=== PATIENT | female | born 1980 | race Caucasian/White ===

== ENCOUNTER 2019-04-20 05:51 | Inpatient (IN) | payer OTHER ==
[2019-04-19 16:25] VITALS: BMI 40.2
[2019-04-19 17:08] LABS: ALT (SGPT) 15 U/L (8-55); AST (SGOT) 12 U/L (5-34); Albumin 4.1 g/dL (3.5-5.0); Alkaline Phosphatase 83 U/L (40-150); Bilirubin, Direct 0.1 mg/dL (0.1-0.3); Bilirubin, Total Less than 0.2 mg/dL (0.2-1.2); Protein, Total 7.9 g/dL (6.0-8.3)
[2019-04-19 17:09] LABS: BHCG - Serum Negative (NEGATIVE); Pregs Control Background? CLEAR/WHITE (CLR/WHITE); Pregs Control Bar Appear? YES (CONTROL BAR)
[2019-04-20] MEDS ORDERED: Famotidine/PF 20 mg/2ml Vial ONE ×2 (06:14→06:31)
[2019-04-20] MEDS ORDERED: Gabapentin 300 MG CAP ONE (06:14)
[2019-04-20] MEDS ORDERED: CeleCOXIB 100 MG CAP ONE (06:15)
[2019-04-20] MEDS ORDERED: Meperidine HCl/PF 25 MG/ML VIAL ONE (06:31)
[2019-04-20] MEDS ORDERED: Fentanyl 100 MCG/2 ML VIAL ONE ×2 (06:31→11:51)
[2019-04-20] MEDS ORDERED: Bupivacaine HCl 0.5%/Epinephrine 1:200,000/PF 30 ml Vial ONE (07:06)
[2019-04-20] MEDS ORDERED: SUGAMMADEX SODIUM 500 MG/5 ML VIAL ONE (09:54)
[2019-04-20] MEDS ORDERED: Promethazine HCl 25 MG/ML VIAL IM PRN ×2 (10:30→10:41)
[2019-04-20] MEDS ORDERED: Ondansetron HCl/PF 4 MG/2 ML Vial IVP PRN (10:30)
[2019-04-20] MEDS ORDERED: Promethazine HCl 25 MG/ML VIAL SLOW IVP PRN (10:30)
[2019-04-20] MEDS ORDERED: diphenhydrAMINE 25 MG CAP PO PRN (10:41)
[2019-04-20] MEDS ORDERED: Metoprolol Tartrate 5 MG/5 ML VIAL IVP PRN (10:41)
[2019-04-20] MEDS ORDERED: HYDROcodone/Acetaminophen 5/325 mg Tablet PO PRN (10:41)
[2019-04-20] MEDS ORDERED: Bisacodyl 10 MG SUPP PR PRN (10:41)
[2019-04-20] MEDS ORDERED: Ondansetron PF 4 MG/2 ML Vial IVP PRN (10:41)
[2019-04-20] MEDS ORDERED: Zolpidem Tartrate 5 MG TAB PO PRN (10:41)
[2019-04-20] MEDS ORDERED: Morphine 4 MG/ML VIAL SLOW IVP PRN (10:41)
[2019-04-20] MEDS ORDERED: Dextrose 50% Abboject 50 ML SYRINGE SLOW IVP PRN (11:10)
[2019-04-20] MEDS ORDERED: Dextrose 5% in Water 1,000 ML IV PRN (11:10)
[2019-04-20] MEDS ORDERED: Insulin Regular 300 UNITS/3 ML VIAL SC PRN (11:10)
--- NOTE | 2019-04-20 12:43 | OP ---
DATE OF PROCEDURE: 04/20/2019 PREOPERATIVE DIAGNOSES: 1. Pelvic pain. 2. Fibroids. 3. Menorrhagia. 4. Anemia. POSTOPERATIVE DIAGNOSES: 1. Pelvic pain. 2. Fibroids. 3. Menorrhagia. 4. Anemia. 5. Endometriosis. 6. Adhesive disease. PROCEDURES PERFORMED: Robotic assisted total laparoscopic hysterectomy, bilateral salpingectomy, and lysis of adhesions x50 minutes. MIXING PAN TENDER SURGEON: Rebeka To PA-C ANESTHESIA: General endotracheal. PATHOLOGY: Uterus, cervix, and bilateral fallopian tubes. ESTIMATED BLOOD LOSS: 100 mL. IVF: 1700 mL crystalloid. URINE OUTPUT: 550 mL clear urine. COMPLICATIONS: None. DRAINS: Roblero catheter. FINDINGS: The uterus sounded to 10 cm. The cervix and vagina were normal appearing. On intraabdominal survey, there were dense adhesions of the colon to the anterior fundal and posterior portion of the uterus as well as adhesions of the colon and epiploica to bilateral adnexa. The bladder was densely adherent to a portion of the lower uterine segment anteriorly and there were omental adhesions to the anterior abdominal wall. Once the adhesions were removed, there were normal-appearing fallopian tubes and ovaries. Subserosal fibroids were noted on the anterior and posterior surface of the uterus. There was no bowel injury upon running the colon following the surgery and there was no bladder injury upon back filling of the bladder. The ureters were visible and retroperitoneally bilaterally and were vermiculating in lateral to the surgical site. There was a small black endometriotic implant in the posterior cul-de-sac that was cauterized. Excellent hemostasis on low pressure check. OPERATIVE TECHNIQUE: The patient was taken to the operating room, where general anesthesia was obtained without difficulty. The patient was prepped and draped in a sterile fashion in the dorsal lithotomy position. A Roblero catheter was placed in the bladder. A speculum was placed in the vagina. The anterior lip of the cervix was grasped with single-tooth tenaculum. The cervix was then dilated with Chuy dilators and the NANCY manipulator was assembled with an 8 cm tip and a 3.5 cm colpotomizer ring. The uterine manipulator was inserted and the colpotomizer ring was advanced fit snugly around the cervix and all instruments removed out of vagina. Legs were placed in low lithotomy. Attention was turned to the abdomen. A 0.5% Marcaine with epi was infiltrated into the umbilicus and a 12 mm skin incision was made. The Veress needle was passed to the abdomen, noting an opening pressure of 4 mmHg. Pneumoperitoneum was obtained without difficulty. The Veress needle was removed. The 12 mm trocar was advanced into the abdomen and confirmed placement with the robotic camera. Steep Trendelenburg was obtained. The right 8 mm lower quadrant robotic trocar was placed under direct visualization after infiltrating with anesthetic. The 11 mm assistant professor of chemistry port was placed in the right upper quadrant under direct visualization after infiltrating with anesthetic. The left side was examined and the adhesions were noted at that time. The camera was maneuvered to visualize the left lower quadrant and the 8 mm lower quadrant left-sided robotic trocar was placed under direct visualization after infiltrating with anesthetic. The robot was then docked. The right robotic arm contained monopolar scissors and left robotic arm contained a fenestrated bipolar. The surgeon console then took control. The adhesions were then assessed noting majority being colonic adhesions to the uterus and adnexa. The omental adhesions to the anterior abdominal wall were taken down initially as these were closest to our camera and peeling the view of the fenestrated. This was done with the scissors on cautery. The additional omental adhesions were layered out with the clear window and then incising in this clear portion to ensure no inadvertent injury. The adhesions of the bladder to the lower anterior uterus were then layered out carefully with the scissors as well as pushing and spreading technique to attempt to get the tissue to peel away into and define the spaces that were free of any vital structures. The bladder was then backfilled and the limitations of the bladder mucosa were noted. The adhesion to the lower segment of the bladder was then incised with the scissors and carefully peeled away and staying close to the uterus and hemostasis was noted. The colonic adhesions to the uterus were then addressed. The filmy fibers were incised well away from the bowel to ensure no thermal or sharp injury to the bowel. These colonic adhesions were taken down with the use of a blunt dissection as well as appealing technique as well as cold cutting. There was an area of dense adhesion to the fundal portion and the colon was taken down as much with as would peel away around this area and then carefully peeled away these adhesions. There was a small amount of the uterine serosa that was peeled away with these adhesions, with this was to prevent any damage to the bowel. This technique was carried around the entire uterus, carefully ensuring no inadvertent injury to the bowel. The adnexal adhesions of the colon were taken down largely with layering out by pushing and spreading and then incised in a clear portion as well as peeling away. The assistant professor of chemistry was useful to provide countertraction while these adhesions were being peeled away and a total of approximately 50 minute was spent on the lysis of adhesion portion. Once the anatomy was normalized, the right fallopian tube was grasped and elevated. The mesosalpinx was cauterized with the fenestrated incised with the scissors until the medial portion was met and then this was clamped across cauterized with the fenestrated and transected with the scissors and removed out of the abdomen. The right round ligament was cauterized in the midportion with the fenestrated and incised with the scissors and then the mesovarium was cauterized and transected as well as the utero-ovarian noting hemostasis. The ureter was then noted running in the pelvic sidewall on the right. The posterior leaf of the broad ligament was dropped down as well as the anterior leaf of the broad ligament. The uterine vessels were skeletonized with the scissors and the vesicouterine peritoneum was incised after undermining with the fenestrated and the bladder flap was further developed using a scoring technique on the pubocervical fascia and blunt dissection down below the level of the colpotomizer ring. Attention was then turned to the right side. There remained some filmy adhesions to the fallopian tube from the colon and these were taken down with the scissors. The mesosalpinx was then clamped and cauterized with the fenestrated and transected with scissors and the medial portion was clamped across, cauterized, and transected removed out of the abdomen. The left round ligament was clamped in the midportion and cauterized with the fenestrated and transected with the scissors. The anterior leaf of the broad ligament was undermined and dropped down to the level of the incision from the contralateral side and further dissection in the retroperitoneum with pushing and spreading was performed. The mesovarium was then cauterized and incised as well as the utero-ovarian ligament on the left ensuring hemostasis. The uterus was anteverted and the posterior leaf of the broad ligament on the left was dropped down to the level of the uterosacral. This side had more dense adhesions and visualization of the ureter was difficult. Therefore, the posterior leaf was pulled traction on and blunt dissection through the retroperitoneum was able to identify the ureter running in the medial leaf of the broad ligament and noting that to be very lateral. The vessels were then skeletonized on the left side. The bladder flap was completely developed at that point, and the vessels were cauterized with the fenestrated multiple times bilaterally and the right side was then incised and the anterior colpotomy was performed and carried around to the left side, where those vessels were again cauterized and then dropped down and incised to allow the pedicle to fall away. The colpotomy was then completed posteriorly. The uterus was then removed into the vagina. The cuff was irrigated and noted to be hemostatic. The scissors were traded out for the needle sweeper driver and the vaginal cuff was closed with a 2-0 barbed STRATAFIX suture in a running fashion and then run back for the additional layer. The needle was cut and removed out of the abdomen and copious irrigation was performed of the pelvis. The ureters were noted at that time, again intact and vermiculating in the pelvic sidewalls. The bowel was examined, where the adhesions were taken down from and noted to be hemostatic without any evidence of injury or serosal damage. Copious irrigation was performed of this area as well. The bladder was backfilled, and no extravasation of saline into the pelvis was noted and low pressure check was performed noting excellent hemostasis. Tisseel was then placed over the surgical site as well as over the area of the lysis of adhesions on the colon and all instruments removed out of the abdomen. The robot was then docked. The fascia of the camera port was closed with 0 Vicryl in a [id number] fashion. The skin was closed with a 4-0 Monocryl in subcuticular fashion and Dermabond was applied. The vaginal cuff was checked and noted to be hemostatic. All instruments were removed out of the vagina. The patient tolerated the procedure well. Sponge, lap, and needle counts were correct x2. The patient was taken to recovery room in stable condition. The patient received Ancef 2 g prior to the procedure. Job ID: [id number]
[2019-04-20] MEDS ORDERED: Simethicone Chewable 80 MG TAB PO PRN (13:00)
[2019-04-20] MEDS: Ketorolac Tromethamine 30 MG/ML VIAL IVP SCH ×2 (13:20→18:54)
[2019-04-20 13:33] LABS: Glucose Accucheck Confirmation 184 mg/dl (70-105)
[2019-04-20] MEDS ORDERED: Ibuprofen 800 MG TAB PO SCH (14:00)
[2019-04-20] MEDS: Sodium Chloride 0.9% 1,000 ML IV SCH (14:50)
[2019-04-20] MEDS: Ibuprofen 800 MG TAB PO SCH ×2 (16:44→22:06)
[2019-04-20] MEDS: HYDROcodone/Acetaminophen 5/325 mg Tablet PO PRN (22:47)
[2019-04-21] MEDS: Ketorolac Tromethamine 30 MG/ML VIAL IVP SCH ×3 (00:51→07:32)
[2019-04-21] MEDS: Sodium Chloride 0.9% 1,000 ML IV SCH ×2 (00:54→06:17)
[2019-04-21 04:49] LABS: Hemoglobin 10.2 g/dL (12.0-16.0); Mean Corpuscular HGB CONC 31.9 g/dL (32.0-36.0); Mean Corpuscular Hemoglobin 24.9 pg (27.0-31.0); Mean Platelet Volume 6.4 fL (7.4-10.4); Platelet Count 423 thou/uL (130-400); RBC Distribution Width 18.4 % (11.5-14.5); Red Blood Cell (RBC) Count 4.08 mill/uL (4.20-5.40); White Blood Cell (WBC) Count 14.1 thou/uL (4.8-10.8)
[2019-04-21 05:08] LABS: Anion Gap 10 mmol/L (10-20); BUN (Urea Nitrogen) 12 mg/dL (7.0-18.7); Calc. Creatinine Clearance 172 mL/min (70-130); Calcium 8.2 mg/dL (7.8-10.44); Carbon Dioxide 26 mmol/L (22-29); Chloride 104 mmol/L (98-107); Estimated GFR-MDRD Greater than 90; Glucose 145 mg/dL (70-105); Potassium 3.7 mmol/L (3.5-5.1); Sodium 136 mmol/L (136-145)
[2019-04-21] MEDS: Ibuprofen 800 MG TAB PO SCH (05:24)
[2019-04-21] MEDS: HYDROcodone/Acetaminophen 5/325 mg Tablet PO PRN (05:24)
[2019-04-21 05:29] VITALS: TEMP 98
[2019-04-21] MEDS ORDERED: metFORMIN 500 MG TAB PO SCH (08:00)
[2019-04-21 08:30] VITALS: BP 108/69
[2019-04-21] MEDS ORDERED: Lisinopril/Hydrochlorothiazide 20 mg/12.5 mg Tablet PO SCH (09:00)
[2019-04-21] MEDS ORDERED: GLYXAMBI PO SCH (09:00)
--- NOTE | 2019-04-21 10:23 | PDOC.EVN ---
Event Note - Event Note Event Note: POD1 S: No complaints, pramod po, pain controlled, min vag spotting, voiding and ambulating. O: VSSAF NAD unlabored resp Abd s/appttp/nd/inc c/d/i no edema Hgb 10.2 BS 135 this am BMP wnl A) POD1 s/p RATLH Bilat salpingecotmy MIKE P) Met all milestones, DC home with restrictions, FU 2 wk, cont home meds, DC with norco and ibuprofen. Intraop findings discussed, health information clerk present.
== END 2019-04-21 11:27 | disposition home or self-care (01) | DRG 743 ==
LOC: SURG A 05:51 → 3SE 11:37
PROVIDERS: ADMIT Student in an Organized Health Care Education/Training Program; ATTEND Student in an Organized Health Care Education/Training Program
PROC: 0UT94ZZ Resection of Uterus, Percutaneous Endoscopic Approach (ICD-10-PCS; principal; 2019-04-20)
PROC: 0UT74ZZ Resection of Bilateral Fallopian Tubes, Percutaneous Endoscopic Approach (ICD-10-PCS; 2019-04-20)
PROC: 0DNE4ZZ Release Large Intestine, Percutaneous Endoscopic Approach (ICD-10-PCS; 2019-04-20)
PROC: 8E0W4CZ Robotic Assisted Procedure of Trunk Region, Percutaneous Endoscopic Approach (ICD-10-PCS; 2019-04-20)
DX: D25.2 Subserosal leiomyoma of uterus (principal); N80.9 Endometriosis, unspecified; D64.9 Anemia, unspecified; K66.0 Peritoneal adhesions (postprocedural) (postinfection)
CPT/HCPCS: 36415; 36416; 80048; 80076; 84703; 85027; 86850; 86900; 86901; 88307; 93005; 93010; J0131; J0670; J0690; J1815; J1885; J2175; J2270; J3010; S0028

== ENCOUNTER 2019-04-25 22:15 | Emergency (ER) | payer OTHER ==
[~2019-04-25 22:15] MED LIST: ISOVUE-370 76%-LOCM 1 ML ONE
[2019-04-25] MEDS ORDERED: Morphine 4 MG/ML VIAL ONE (23:08)
[2019-04-25 23:22] LABS: #Basophils 0.1 thou/uL (0.0-0.2); #Eosinphils 0.3 thou/uL (0.0-0.7); #Lymphocytes 3.8 thou/uL (1.20-3.40); #Monocytes 0.8 thou/uL (0.11-0.59); %Basophils 0.7 % (0.0-1.0); %Eosinophils 1.6 % (0.0-10.0); %Monocytes 4.8 % (0.0-10.0); Hemoglobin 11.6 g/dL (12.0-16.0); Mean Corpuscular HGB CONC 31.2 g/dL (32.0-36.0); Mean Corpuscular Hemoglobin 24.6 pg (27.0-31.0); Mean Corpuscular Volume 78.8 fL (78.0-98.0); Mean Platelet Volume 6.3 fL (7.4-10.4); Platelet Count 527 thou/uL (130-400); RBC Distribution Width 18.6 % (11.5-14.5); Red Blood Cell (RBC) Count 4.71 mill/uL (4.20-5.40)
[2019-04-25 23:35] LABS: Bacteria/HPF 1+ HPF (None Seen); Bilirubin Negative (Negative); Blood, Urine Negative (Negative); Clarity Clear (Clear); Glucose, Urine (Dipstick) Greater than 1000 mg/dL (Negative); Leukocyte 25 Leu/uL (Negative); Nitrite Negative (Negative); Protein, Urine (Dipstick) Negative (Neg-Trace); RBC/HPF 0-3 HPF (0-3); Urobilinogen Normal mg/dL (Less than 2)
[2019-04-25 23:40] LABS: ALT (SGPT) 12 U/L (8-55); AST (SGOT) 10 U/L (5-34); Albumin 4.3 g/dL (3.5-5.0); Alkaline Phosphatase 82 U/L (40-150); Anion Gap 14 mmol/L (10-20); BUN (Urea Nitrogen) 13 mg/dL (7.0-18.7); Bilirubin, Total 0.2 mg/dL (0.2-1.2); Calc. Creatinine Clearance 0 mL/min (70-130); Calcium 10.1 mg/dL (7.8-10.44); Carbon Dioxide 28 mmol/L (22-29); Chloride 97 mmol/L (98-107); Estimated GFR-MDRD 86; Globulin 3.7 g/dL (2.4-3.5); Glucose 146 mg/dL (70-105); Potassium 4.1 mmol/L (3.5-5.1); Sodium 135 mmol/L (136-145)
--- NOTE | 2019-04-25 23:43 | CT ---
EXAM: CT ABDOMEN AND PELVIS HISTORY: Recent laparoscopic hysterectomy. Pain. COMPARISON: 01/22/2019 Procedure: Multiple contiguous axial images were obtained and a CT of the abdomen and pelvis with IV contrast. C oronal reformats were performed. FINDINGS: Lower Chest: within normal limits. Vessels: Normal caliber aorta Heart: Normal heart size. No pericardial fluid Abdomen: Portal vein:Patent Gallbladder: No calcified gallstones. Normal caliber wall. Liver: within normal limits. Pancreas: within normal limits. Spleen: within normal limits. Adrenals: within normal limits. Kidneys: Symmetric enhancement. No obstructive uropathy. Peritoneum: Small pockets of free air within the mesentery likely due to postoperative pneumoperitone um. Bowel: Limited evaluation due to lack of oral contrast. No evidence of bowel obstruction. Normal génesis zach appendix. Scattered fecal material in a nondistended, nondilated colon. Mesentery and Retroperitoneum: No enlarged mesenteric or retroperitoneal lymph nodes. Abdominal Wall: There is evidence of subcutaneous emphysema likely iatrogenic. No evidence of a abdom inal wall abscess. Pelvis: Reproductive Organs: Findings compatible with recent hysterectomy. Pelvis: Ill-defined slightly hyperdense fluid in the base of the pelvis extending into the left hemip gaurang. There is no evidence of air attenuation. A post surgical fluid collection/hematoma is favored. Attenuation coefficient varying between 35 and 45 Hounsfield units. Collection measures 1.4 x 3.3 cm at its inferior most aspect. The superior most aspect measures 3.7 x 3.0 cm. Bladder: Unremarkable. Bones: within normal limits. IMPRESSION: 1. Findings compatible with a recent laparoscopic hysterectomy. There is iatrogenic air within the pe ritoneum and abdominal subcutaneous fat. 2. Hyperdense fluid in the pelvis likely due to postoperative change (fluid versus hematoma). There i s no evidence of air attenuation or a well-defined peripherally enhancing rim to suggest abscess at this time. Transcribed Date/Time: 04/25/2019 11:49 PM
[2019-04-26] MEDS ORDERED: Sodium Chloride 0.9% 100 ML ONE (01:40)
[2019-04-26] MEDS ORDERED: cefTRIAXone\\ROCEPHIN 1 GM VIAL ONE (01:40)
--- NOTE | 2019-04-26 03:29 | CON ---
DATE OF CONSULTATION: 04/25/2019 CHIEF COMPLAINT: Abdominal pain. HISTORY OF PRESENT ILLNESS: The patient is a 39-year-old female who is day #5 status post a laparoscopic hysterectomy. The patient reports that she was having this evening abdominal pain at her umbilical site and on one of her incision sites on the right and came in for evaluation. The patient reports her pain has been controlled with Tylenol and ibuprofen, but the pain returns. The patient denies any fever. Denies chest pain or shortness of breath. Denies vaginal bleeding or change in discharge. Denies diarrhea or constipation. The patient reports she is scheduled to have her next appointment on 05/04. PAST MEDICAL HISTORY: Elevated cholesterol, hypertension, epilepsy. PAST SURGICAL HISTORY: She has had a , cholecystectomy, and then 5 or 6 days ago, hysterectomy. ALLERGIES: NO KNOWN DRUG ALLERGIES. MEDICATIONS: 1. Metformin 500 mg 2 tablets twice a day. 2. Glyxambi 10 mg once a day. 3. Lisinopril/hydrochlorothiazide 20/12.5 orally once a day. REVIEW OF SYSTEMS: Per HPI. PHYSICAL EXAMINATION: VITAL SIGNS: Blood pressure 125/82, pulse 93, respiratory rate of 20, temperature 98.2. GENERAL: She appears to be in no acute distress. She is alert, oriented, cooperative, and pleasant to interact with. HEAD: Normocephalic atraumatic. LUNGS: Clear to auscultation bilaterally. ABDOMEN: Fairly soft. She does have some tenderness at the umbilical site and at the incision site on the right. These incisions are dry. There is no drainage from these. There is no redness, no induration. DIAGNOSTIC DATA: A CT scan was performed and noted to have some postoperative changes intra-abdominally, but no evidence of abscess. CBC shows a white count of 16,000, hemoglobin 11.6, hematocrit 37.1, neutrophils of 69%. ASSESSMENT AND PLAN: The patient is a 39-year-old female day #5 status post a laparoscopic hysterectomy, having some incision site pain. The patient reports the pain is controlled with ibuprofen and Tylenol; however, it returns with each use and was concerned and came in for evaluation. The incision sites where she is having pain appeared to be soft and dry with no clear indication or no clear signs of infection. The patient does have elevated count, however, no left shift. She has been afebrile. No positive findings on CT scan. To err on the side of safety and possible early infection given the patient's report of pain, I have recommended giving her dose of Rocephin and Flagyl here in the emergency room and then to go home with appropriate antibiotics. I have also asked her to follow up with Dr. Almaraz in the next couple days, just to have close followup to make sure this whatever process occurring is not worsening. The patient has been counseled to return to the emergency room should she experience fever or increasing pain. Job ID: [id number]
== END 2019-04-26 02:04 | disposition home or self-care (01) ==
LOC: ERS 22:15
DX: T81.40XA Infection following a procedure, unspecified, initial encounter (principal); B37.3 Candidiasis of vulva and vagina; E78.00 Pure hypercholesterolemia, unspecified; I10 Essential (primary) hypertension; F32.9 Major depressive disorder, single episode, unspecified; Z79.84 Long term (current) use of oral hypoglycemic drugs; Z79.899 Other long term (current) drug therapy
CPT/HCPCS: 74177; 80053; 81003; 81015; 85025; 96361; 96374; 96375; J0696; J2270; J3490; Q9966